=== PATIENT | female | born 1940 | race Caucasian/White ===

== ENCOUNTER 2017-02-20 16:49 | Inpatient (IN) | payer MEDICARE, OTHER ==
--- NOTE | ~2017-02-20 | CN ---
Consultation Report [facility] [address] [place]. [address] NAME: LIDA PÉREZ : 38 STATUS : DIS IN PAT#: [id number] AGE: 76 ADM/REG DATE : 02/20/17 MR#: [id number] REPORT SERV DATE: 02/22/17 DICTATED BY: ERASMO VELASQUEZ DATE: 02/22/17 REPORT STATUS : Draft TRANSCRIBED BY: MODTelma DATE: 02/22/17 CONSULTATION REPORT DATE OF CONSULTATION: Dear Dr. Truong Castro: Thank you for requesting my opinion regarding evaluation and management of Ms. Lida Pérez. Ms. Pérez is a pleasant 76-year-old female with a significant past medical history of aortic aneurysm repair who presented with one-month history of worsening shortness of breath and lower extremity swelling. She recently saw her primary care physician who diagnosed her with COPD based on outpatient pulmonary function test. She denies any history of asthma or COPD. Her symptoms of shortness of breath are longstanding that spanned over several years, but more recently have worsened in the past month. She is scheduled for discharge eminently and I have been asked to evaluate her just prior to discharge. She currently has home O2 at night and she wishes to see a community affairs manager in the [facility], preferably at [facility]. REVIEW OF SYSTEMS: A detailed 14-point review of systems was completed. Pertinent positives and negatives are listed above. PAST MEDICAL HISTORY: 1. Hypertension. 2. Lupus. 3. Negative cardiac catheterization a few years ago. PAST SURGICAL HISTORY: Aortic aneurysm repair by Dr. Waldo Gallardo. SOCIAL HISTORY: The patient is a lifelong nonsmoker. Family is in the room. She has a daughter in the room, who is a nurse. FAMILY HISTORY: Coronary artery disease. Past surgical history, as above. ALLERGIES: PENICILLIN, SULFA, AND CODEINE. HOME MEDICATIONS: 1. Tylenol. 2. Albuterol inhaler. 3. Exforge 5/320 one tablet p.o. daily. 4. Aspirin 81 mg p.o. daily. 5. Celebrex 100 mg p.o. daily. 6. Gabapentin as directed. Consultation Report [facility] [address] [place]. [address] NAME: LIDA PÉREZ : 38 STATUS : DIS IN PAT#: [id number] AGE: 76 ADM/REG DATE : 02/20/17 MR#: [id number] REPORT SERV DATE: 02/22/17 DICTATED BY: ERASMO VELASQUEZ DATE: 02/22/17 REPORT STATUS : Draft TRANSCRIBED BY: HARRIS DATE: 02/22/17 7. Plaquenil 200 mg p.o. b.i.d. 8. Indapamide as directed. 9. Lopressor 12.5 mg p.o. b.i.d. 10.Asmanex inhaler. PHYSICAL EXAMINATION: VITAL SIGNS: Afebrile, T-current at 97.5, pulse of 66, respiratory rate of 18, room air 93%, and blood pressure 129/62. GENERAL: In no acute distress and able to communicate in full paragraphs at a time. HEENT: Normocephalic and atraumatic. Pupils are equal, round, and reactive to light and accommodation. Posterior oropharynx is clear. NECK: No JVD. No LAD. Trachea midline. CARDIOVASCULAR: Regular rate and rhythm. S1 and S2 present. LUNGS: Diminished breath sounds bilaterally. Coarse crackles at the bases. ABDOMEN: Nontender and nondistended. Positive bowel sounds. EXTREMITIES: No clubbing, cyanosis, or edema. SKIN: No new rashes, lesions, or ulcers. PSYCHIATRIC: Alert and oriented x3. LABORATORY DATA: White count of 4.7, hemoglobin of 11, hematocrit of 34, and platelet count of 221. Chemistries demonstrate a creatinine of 0.8. IMAGING: No chest imaging is available. Bilateral lower leg Dopplers were performed. TOMAS was performed on 02/21/2017 demonstrated no intracardiac thrombus, preserved left ventricular dysfunction, biatrial enlargement with severe enlarged right atrium. Moderate- to-severe tricuspid regurgitation. No obvious pericardial effusion. CTA of chest that was performed on 07/08/2012 demonstrated a bright granulomatous disease of the lung with unchanged scarring in the right medial lobe and chronic subpleural reticulation at the bases suggestive of mild fibrosis or scarring. Chest x-ray performed on 10/10/2016 demonstrates no acute cardiopulmonary abnormality. ASSESSMENT AND PLAN: Ms. Lida Pérez is a pleasant 76-year-old female with a significant past medical history of lupus and atrial flutter who presented with a longstanding history of shortness of breath for the past several years, which worsened and became more acutely in the past month. She had associated symptoms of bilateral lower leg swelling. She underwent an atrial flutter ablation without any significant complication. She had negative Dopplers and no chest imaging performed during this hospitalization. The patient does have a prior CT scan on 07/08/2012 that demonstrates subpleural reticulation and scarring in the right middle lobe, highly suspicious for possible interstitial lung disease secondary to her lupus. She has no significant animal or chemical exposures. She does have a history of heavy secondhand smoke exposure. She had outpatient pulmonary function test that demonstrated airway obstruction with interval worsening of preserved total lung capacity, increased Consultation Report [facility] [id number] [place]. [address] NAME: LIDA PÉREZ : 38 STATUS : DIS IN PAT#: [id number] AGE: 76 ADM/REG DATE : 02/20/17 MR#: [id number] REPORT SERV DATE: 02/22/17 DICTATED BY: ERASMO VELASQUEZ DATE: 02/22/17 REPORT STATUS : Draft TRANSCRIBED BY: HARRIS DATE: 02/22/17 residual volume with airtrapping, again progressed from previous testing and then found decreased diffusion capacity with interval decline, all consistent with potential chronic obstructive pulmonary disease-like changes. The potential etiologies of her shortness of breath include: 1. Asthma. 2. Possible occult interstitial lung disease, first seen on an initial CT scan in 2011 with a history of lupus. 3. Heart failure secondary to her atrial flutter. Since the patient is being discharged momentarily, the patient will benefit from home O2 evaluation. The patient requires home O2 at night. Outpatient CT scan of the chest and full pulmonary function test to be ordered prior to following up as a new consult for Dr. Kerry Mcgovern. The patient is requesting a community affairs manager in [place] and wishes to stay within the [facility]. Thank you for allowing me to participate in Ms. Pérez care. The patient can be discharged on her home inhalers. ROBYN/HARRIS Erasmo Velasquez M.D. / [id number] CC: Gold Yepez M.D., F.A.C.CAaron
--- NOTE | ~2017-02-20 | TEE ---
Transesophageal Echocardiogram [facility] [address] [place]. [address] NAME: BONITA PÉREZ : 36 STATUS : ADM IN [facility]#: [id number] AGE: 76 ADM/REG DATE : 02/20/17 MR#: [id number] REPORT SERV DATE: 02/21/17 DICTATED BY: TRUONG CASTRO DATE: 02/21/17 REPORT STATUS : Draft TRANSCRIBED BY: HARRIS DATE: 02/21/17 INDICATION: Preoperative for atrial flutter ablation. PROCEDURE IN DETAIL: The patient was brought to the Electrophysiology Laboratory in a fasting state. I thoroughly discussed the risks and benefits of the procedure with the patient and her family, and they agreed to proceed. All questions were answered. She was prepared in the usual fashion on the EP table. The Anesthesia Service was present to provide monitored anesthesia care in the form of IV propofol. When a proper level of sedation was achieved, the transesophageal echocardiogram probe was gently inserted into the patient's oropharynx and advanced into the esophagus without difficulty. FINDINGS: The left atrium is moderately enlarged. No spontaneous echocardiographic contrast was seen. No thrombus was seen. The left atrial appendage is thoroughly scanned and well seen. No thrombus was seen there. Pulse wave Doppler within the appendage indicates flow velocities up to about 60 or 70 cm/second. The mitral valve is morphologically normal. There is mild mitral regurgitation. The valve opens well. Left ventricular systolic function appears to be preserved with an ejection fraction around 50%. Wall motion appears to be normal. The right ventricular systolic function is also within normal limits. Tricuspid valve appears morphologically normal. There is [id number] tricuspid insufficiency. The right atrium is severely enlarged. No thrombus is seen. The interatrial septum is intact by 2D interrogation as well as color flow Doppler. The aortic valve is trileaflet. It opens well. There is mild aortic insufficiency. The pulmonic valve appears to be morphologically normal. There is mild pulmonic insufficiency. There is no obvious pericardial effusion. The descending thoracic aorta and aortic arch do not appear to have any significant atherosclerotic plaquing. CONCLUSION: 1. NO INTRACARDIAC THROMBUS IDENTIFIED. 2. PRESERVED LEFT VENTRICULAR SYSTOLIC FUNCTION. 3. BIATRIAL ENLARGEMENT WITH SEVERELY ENLARGED RIGHT ATRIUM. 4. [id number] TRICUSPID INSUFFICIENCY. [facility]/HARRIS Truong Castro M.D. / [id number] CC: Gold Yepez M.D., Ly
--- NOTE | ~2017-02-20 | CN ---
Consultation Report [facility] [address] [place]. [address] NAME: BONITA PÉREZ : 36 STATUS : ADM IN PAT#: [id number] AGE: 76 ADM/REG DATE : 02/20/17 MR#: [id number] REPORT SERV DATE: 02/21/17 DICTATED BY: TRUONG CASTRO DATE: 02/21/17 REPORT STATUS : Draft TRANSCRIBED BY: MODL DATE: 02/21/17 PRE-CARDIOLOGY CONSULTATION DATE OF CONSULTATION: REASON FOR CONSULTATION: Atrial flutter. HISTORY OF PRESENT ILLNESS: Ms Pérez is a 76-year-old female with a history of aortic aneurysm repair a few years ago by Dr. Gallardo, who has been having about one month of increased swelling in the lower extremities and worsening shortness of breath. She saw a new car make ready mechanic about a week ago, who diagnosed her with COPD. She does have a history of asthma. She was put on an inhaler, but this did not help at all. A few days ago, she presented to an outside hospital and was diagnosed with congestive heart failure and atrial flutter. She has since been transferred here with the same symptoms. She feels better since being in the hospital because of diuresis. PAST MEDICAL HISTORY: 1. History of aortic aneurysm repair. 2. Hypertension. 3. Lupus. 4. Negative cardiac catheterization a few years ago. SOCIAL HISTORY: She is a nonsmoker. Family is in the room. She has a daughter in the room, who is a nurse. FAMILY HISTORY: There is some coronary artery disease in the family. HOME MEDICATIONS: 1. Tylenol as directed. 2. Albuterol inhaler. 3. Exforge 5/320 mg daily. 4. Aspirin 81 mg daily. 5. Celebrex 100 mg daily. 6. Gabapentin as directed. 7. Plaquenil 200 mg b.i.d. 8. Indapamide as directed. 9. Lopressor 12.5 mg b.i.d. 10.Asmanex inhaler. ALLERGIES: SHE IS ALLERGIC TO PENICILLIN, SULFA, AND CODEINE. REVIEW OF SYSTEMS: A 10 system review is asked and is basically negative except for noted above in the history of present illness. Consultation Report [facility] [address] [place]. [address] NAME: BONITA PÉREZ : 38 STATUS : ADM IN PAT#: [id number] AGE: 76 ADM/REG DATE : 02/20/17 MR#: [id number] REPORT SERV DATE: 02/21/17 DICTATED BY: TRUONG CASTRO DATE: 02/21/17 REPORT STATUS : Draft TRANSCRIBED BY: HARRIS DATE: 02/21/17 PHYSICAL EXAMINATION: VITAL SIGNS: Ms Pérez is afebrile. Heart rate is about 80. Systolic blood pressure is 120. GENERAL: Ms Pérez is a well-developed female, in no acute distress. She is not wearing oxygen. There is no respiratory distress. HEENT: Negative. She does not appear dehydrated. NECK: There is no JVD in her neck. LUNGS: Mostly clear. Few rhonchi. HEART: Heart tones are a little bit irregular. Not fast. There is a murmur. ABDOMEN: The abdominal exam is negative. She has good bowel sounds. EXTREMITIES: Shows a little bit of pitting edema. NEUROLOGIC: She is intact. She has normal speech. She moves all four extremities equally. SKIN: Shows some bruising. No rash. LABORATORY DATA: Please see the chart. Most lab at the outside hospital was basically normal or nonacute. Electrocardiogram shows typical atrial flutter with a controlled ventricular response. IMPRESSION: Persistent symptomatic atrial flutter causing increasing fluid buildup with shortness of breath and edema. PLAN: Ms Pérez is presently hemodynamically stable, but is obviously having some long-term affects from the atrial flutter. This does not appear to be an acute lung process since the acute lung treatment from the new car make ready mechanic given about one week did not really help things. We talked about our treatment options today. These include continued medical management with a rate control strategy. She can continue her beta-joan, would probably need to give her Lasix on a fairly regular basis. Due to her higher CHADS-VASc score, she would need therapeutic blood thinning indefinitely. The next option is to pursue TOMAS and cardioversion with antiarrhythmic drug initiation and indefinite blood thinning. We could also pursue TOMAS and ablation. She would then need one month of blood thinning and no other medications. I discussed these treatment options with the patient and her daughter who is a nurse. We all agree that ablation will be best because she does not want to take new medicines including a long-term blood thinner or AAD. We discussed all the risks of the procedure. I would like her to be on a blood thinner for a little while today before the procedure. I will start her on IV heparin. She ate breakfast this morning, so we will do this late in the day today. It would be okay with me if she goes home tomorrow. I will give her samples of one month of a blood thinner, probably Pradaxa. JAQUELINE/HARRIS Truong Castro M.D. Consultation Report [address] [place]. [address] NAME: BONITA PÉREZ : 36 STATUS : ADM IN PAT#: [id number] AGE: 76 ADM/REG DATE : 02/20/17 MR#: [id number] REPORT SERV DATE: 02/21/17 DICTATED BY: TRUONG CASTRO DATE: 02/21/17 REPORT STATUS : Draft TRANSCRIBED BY: HARRIS DATE: 02/21/17 / [id number] CC: Gold Yepez M.D., F.A.C.C.
[~2017-02-20 16:49] MED LIST: ASAB PO; C5; CALTRA600D PO; CELEBREX1 PO; CELEBREX2 PO; COSAMIN DS1 TAB PO; EXFORGE1 TA1 PO; FISH-EPA1000 MG PO; GLUCCHONDR PO; LOP25 PO; LOZOLTAB PO; METANX PO; NEUR100 PO; OXYCOD PO; PLAQ200B PO; VENTOLIN HFA INH; VITAMIN B-121000 MC1 SL; VITAMIN C100 MG PO
[2017-02-20] MEDS ORDERED: SYSTANE OPH (17:07)
[2017-02-20] MEDS ORDERED: ASMANEX100 INH (17:07)
[2017-02-20] MEDS ORDERED: INDAPAMIDE1.25 MG PO (17:08)
[2017-02-20] MEDS ORDERED: CELEBREX1 PO (17:08)
[2017-02-20] MEDS ORDERED: PLAQ200B PO (17:11)
[2017-02-20] MEDS ORDERED: FISH OIL1200 MG PO (17:11)
[2017-02-20] MEDS ORDERED: NEUR100 PO ×2 (17:12)
[2017-02-20] MEDS ORDERED: LOP25 PO (17:13)
[2017-02-20] MEDS ORDERED: CYANO1000T PO (17:13)
[2017-02-20] MEDS ORDERED: EXFORGE1 TA1 PO (17:13)
[2017-02-20] MEDS ORDERED: VITC500 PO (17:14)
[2017-02-20] MEDS ORDERED: ACET500CAP PO (17:15)
[2017-02-20] MEDS ORDERED: VENTOLIN HFA INH (17:15)
[2017-02-20] MEDS ORDERED: GLUCOSAMINE 2000 MG PO (17:15)
[2017-02-20] MEDS ORDERED: HALF81 PO (17:15)
[2017-02-21 09:35] LABS: BASOPHILS 0.2 %; BASOPHILS ABSOLUTE 0.01 10/3/uL (0.0-0.16); EOSINOPHILS 1.3 %; EOSINOPHILS ABSOLUTE 0.06 10/3/uL (0.0-0.53); IMMATURE GRANULOCYTES 0.2 %; IMMATURE GRANULOCYTES ABSOLUTE 0.01 10/3/uL (0.0-0.11); LYMPHOCYTES 21.5 %; MEAN CORPUS HGB CONC 33.4 g/dL (32.0-36.0); MEAN CORPUSCULAR HEMOGLOB 29.8 pg (26.0-34.0); MEAN CORPUSCULAR VOLUME 89.2 fL (80-100); MEAN PLATELET VOLUME 9.1 fL (9.2-13.0); MONOCYTES 9.2 %; MONOCYTES ABSOLUTE 0.43 10/3/uL (0.21-1.20); NEUTROPHILS 67.6 %; NEUTROPHILS ABSOLUTE 3.14 10/3/uL (2.02-8.40); PLATELET COUNT 221 10/3/uL (150-400); RED CELL COUNT 3.89 10/6/uL (4.0-5.6); WHITE BLOOD CELLS 4.7 10/3/uL (4.5-10.5)
[2017-02-21 09:38] LABS: HEMATOCRIT 34.7 % (36.0-48.0); HEMOGLOBIN 11.6 g/dL (12.0-16.0); MANUAL DIFF NO %
[2017-02-21 09:43] LABS: INTERNATIONAL NORMAL RATI 1.1 UNITS (-)
[2017-02-21 09:45] LABS: PROTIME (NOT ORD) 14.4 SEC (12.0-14.5)
[2017-02-21 09:54] LABS: BUN (BLOOD UREA NITROGEN) 22 MG/DL (6-23); CALCIUM, SERUM 9.3 MG/DL (8.5-10.4); CHLORIDE, SERUM 95 MMOL/L (96-112); GFR AFRICAN AMERICAN 82 ML/MIN (>=60); GFR NON AFRICAN AMERICAN 71 ML/MIN (>=60); PARTIAL THROMBO TIME 28.1 SEC (22.5-37.2); SODIUM, SERUM 134 MMOL/L (135-148)
[2017-02-21 09:57] LABS: CO2 (CARBON DIOXIDE) 31 MMOL/L (24-34); GLUCOSE, SERUM 107 MG/DL (60-99); POTASSIUM, SERUM 3.8 MMOL/L (3.5-5.3)
[2017-02-22] MEDS ORDERED: PRADAXA150 MG PO (15:33)
[2017-02-22] MEDS ORDERED: LIQUITEARS OPH (15:45)
== END 2017-02-22 17:50 | disposition home or self-care (01) | DRG 274 ==
LOC: 7NO 16:49
PROVIDERS: Internal Medicine Cardiovascular Disease
PROC: 02583ZZ Destruction of Conduction Mechanism, Percutaneous Approach (ICD-10-PCS; 2017-02-21)
PROC: 4A0234Z Measurement of Cardiac Electrical Activity, Percutaneous Approach (ICD-10-PCS; 2017-02-21)
PROC: 02K83ZZ Map Conduction Mechanism, Percutaneous Approach (ICD-10-PCS; 2017-02-21)
PROC: B246ZZ4 Ultrasonography of Right and Left Heart, Transesophageal (ICD-10-PCS; 2017-02-21)
PROC: 4A023FZ Measurement of Cardiac Rhythm, Percutaneous Approach (ICD-10-PCS; principal; 2017-02-21 17:04)
DX: I48.92 Unspecified atrial flutter (principal); J44.9 Chronic obstructive pulmonary disease, unspecified; J45.909 Unspecified asthma, uncomplicated; Z88.0 Allergy status to penicillin; Z88.2 Allergy status to sulfonamides; Z79.82 Long term (current) use of aspirin; I10 Essential (primary) hypertension
CPT/HCPCS: 80048; 83735; 85025; 85610; 85730; 93005; 93312; 93320; 93325; 93613; 93621; 93653; 93970; A9270-GY; C1732; C1733; C1769; C1781; C1893; C1894; J3010